=== PATIENT | female | born 1985 | race Caucasian/White ===

== ENCOUNTER 2020-04-28 17:25 | Emergency (ER) | payer SELFPAY ==
[~2020-04-28] VITALS: Ht 172.7 cm; Wt 96.0 kg
[2020-04-28 17:29] VITALS: BP 127/62
[2020-04-28] MEDS ORDERED: ONDANSETRON HCL 4MG/2ML INJ IV STA (17:57)
[2020-04-28] MEDS ORDERED: KETOROLAC 30MG/ML VIAL IV STA (17:57)
[2020-04-28] MEDS ORDERED: SODIUM CHLORIDE 0.9% 1,000 ML IV ONE (18:00)
[2020-04-28 19:10] LABS: CLARITY URINE CLEAR (CLEAR); COLOR URINE YELLOW (YELLOW); KETONES URINE NEGATIVE (NEGATIVE); LEUKOCYTE ESTERASE URINE TRACE (NEGATIVE); NITRITE URINE NEGATIVE (NEGATIVE); OCCULT BLOOD URINE TRACE (NEGATIVE); PH URINE 5.5 (4.5-8.0); PROTEIN URINE NEGATIVE (NEGATIVE); SPECIFIC GRAVITY URINE 1.026 (1.005-1.030)
== END 2020-04-28 18:58 | disposition left against medical advice (07) ==
LOC: ER 17:25
DX: R10.11 Right upper quadrant pain (principal)
CPT/HCPCS: 81003; 81025; 99283; J7030